=== PATIENT | male | born 1955 | race Caucasian/White ===

== ENCOUNTER 2016-10-01 07:00 | Day surgery (SDC) | payer OTHER ==
[2016-10-01] MEDS ORDERED: LIDOCAINE 1% W/EPI 1:200,000 MPF 30ML SQ ONE (14:02)
[2016-10-01] MEDS ORDERED: BUPIVACAINE 0.5% W/EPI MPF 30 ML VIAL IVP ONE (14:02)
[2016-10-01] MEDS ORDERED: DEXAMETHASONE PRESERVATIVE FREE 10MG/ML VIAL IV ONE (14:02)
[2016-10-01] MEDS ORDERED: LIDOCAINE 2% MDV (20MG/ML) 20ML VIAL IV ONE (15:10)
[2016-10-01] MEDS ORDERED: *PACU ONLY* KETAMINE HCL 10 MG/ML (20ML) VIAL IV ONE (15:10)
[2016-10-01] MEDS ORDERED: PROPOFOL 10 MG/ML VIAL IV ONE (15:10)
[2016-10-01] MEDS ORDERED: FENTANYL PF 100MCG/2ML VIAL IV ONE (15:10)
[2016-10-01] MEDS ORDERED: MIDAZOLAM HCL 2MG/2ML VIAL IV ONE (15:10)
--- NOTE | 2016-10-08 17:04 | Operative Note - [facility] ---
DATE OF SURGERY: 10/01/16 PREOPERATIVE DIAGNOSIS: CERVICAL SPONDYLOSIS WITHOUT MYELOPATHY, ICD-10 CODE = M47.812. OPERATION: RADIOFREQUENCY RHIZOTOMY LEFT CERVICAL FACETS 3-4, 4-5, 5-6, AND 6-7. SURGEON: LUDMILA TRIPATHI D.O. ANESTHESIA: LOCAL SEDATION. ANESTHESIA PROVIDER: CINDY NICOLE CRNA INDICATION: This patient presents with pain, which is left-sided neck and shoulder. Diagnostics confirm multiple levels of spondylosis. Due to the failure of therapy, a facet series resulted in 75-90% pain control. He is here for rhizotomy for more long-term relief. PROCEDURE: Intravenous line, vital sign monitoring by Anesthesia, patient position prone. Sterile prep, sterile technique. Facets on the left at 3-4, 4-5 , 5-6, and 6-7 marked and infiltrated. A 22-gauge rhizotomy cannula positioned. Stimulation trials conducted. Rhizotomy burn performed. Local with anti- inflammatory into the sites. Topical antibiotics. Sterile dressing applied. We will monitor and evaluate. cc: Dr. Goldman JOB NUMBER: [id number] MTDD
== END 2016-10-01 09:00 | disposition home or self-care (01) ==
LOC: SUR 07:00
PROVIDERS: ATTEND Pain Medicine Interventional Pain Medicine
DX: M47.892 Other spondylosis, cervical region (principal); E78.00 Pure hypercholesterolemia, unspecified; E11.9 Type 2 diabetes mellitus without complications; Z79.84 Long term (current) use of oral hypoglycemic drugs; I10 Essential (primary) hypertension
CPT/HCPCS: 64633; 64634 ×3; 01936; J1100; J3010

== ENCOUNTER 2017-03-18 08:51 | Day surgery (SDC) | payer BC, MEDICARE ==
[2017-03-18] MEDS ORDERED: LIDOCAINE 1% W/EPI 1:200,000 MPF 30ML SQ ONE (08:52)
[2017-03-18] MEDS ORDERED: BUPIVACAINE 0.75% W/EPI MPF 30ML VIAL IVP ONE (08:52)
[2017-03-18] MEDS ORDERED: PROPOFOL 10 MG/ML VIAL IV ONE (08:52)
[2017-03-18] MEDS ORDERED: MIDAZOLAM HCL 2MG/2ML VIAL IV ONE (08:52)
[2017-03-18] MEDS ORDERED: FENTANYL PF 100MCG/2ML VIAL IV ONE (08:52)
[2017-03-18] MEDS ORDERED: LIDOCAINE 2% MDV (20MG/ML) 20ML VIAL IV ONE (08:52)
[2017-03-18] MEDS ORDERED: DEXAMETHASONE PRESERVATIVE FREE 10MG/ML VIAL IV ONE (08:52)
[2017-03-18] MEDS ORDERED: HYDROCODONE/APAP 7.5/325MG TABLET PO ONE (08:52)
--- NOTE | 2017-03-18 16:07 | Operative Note - [facility] ---
DATE OF SURGERY: 03/18/17 PREOPERATIVE DIAGNOSIS: CERVICAL SPONDYLOSIS WITHOUT MYELOPATHY , ICD-10 CODE = M47.812. OPERATION: RADIOFREQUENCY RHIZOTOMY BILATERAL CERVICAL FACETS 4-5, 5-6, AND 6-7. SURGEON: LUDMILA TRIPATHI D.O. ANESTHESIA: LOCAL SEDATION. ANESTHESIA PROVIDER: LIGIA ROSAS CRNA INDICATION: This patient presents with neck pain. Examination shows tenderness in the cervical spine. Range of motion does cause pain to the neck with extension. Diagnostic studies show diffuse multiple levels of spondylosis. A facet series 75-plus percent pain control. Due to the failure of all therapies and the success of the facet series, the patient is here for rhizotomy for more long-term relief. PROCEDURE: Intravenous line, vital sign monitoring, IV sedation, prepped, draped, sterile technique. Under imaging, cervical facet levels at 4-5, 5-6, and 6-7 were identified and marked bilaterally. Skin infiltrated. A 22-gauge rhizotomy cannula positioned. Stimulation trials conducted. Rhizotomy burn performed. Local with anti-inflammatory into the sites. Topical antibiotics. Sterile dressing applied. We will monitor and evaluate. cc: Dr. Yuli Tripathi JOB NUMBER: [id number] MTDD
== END 2017-03-18 11:00 | disposition home or self-care (01) ==
LOC: SUR 08:51
PROVIDERS: ATTEND Pain Medicine Interventional Pain Medicine
DX: M47.812 Spondylosis without myelopathy or radiculopathy, cervical region (principal); E78.00 Pure hypercholesterolemia, unspecified; E11.9 Type 2 diabetes mellitus without complications; Z79.84 Long term (current) use of oral hypoglycemic drugs
CPT/HCPCS: J3490

== ENCOUNTER 2017-12-09 06:21 | Day surgery (SDC) | payer MEDICARE, BC ==
[2017-12-09] MEDS ORDERED: LIDOCAINE 2% MDV (20MG/ML) 20ML VIAL IV ONE (06:22)
[2017-12-09] MEDS ORDERED: MIDAZOLAM HCL 2MG/2ML VIAL IV ONE (06:22)
[2017-12-09] MEDS ORDERED: PROPOFOL 10 MG/ML VIAL IV ONE (06:22)
[2017-12-09] MEDS ORDERED: FENTANYL PF 100MCG/2ML VIAL IV ONE (06:22)
[2017-12-09] MEDS ORDERED: BUPIVACAINE 0.5% W/EPI MPF 30 ML VIAL IVP ONE (06:22)
[2017-12-09] MEDS ORDERED: LIDOCAINE 1% W/EPI 1:200,000 MPF 30ML SQ ONE (06:22)
[2017-12-09] MEDS ORDERED: DEXAMETHASONE PRESERVATIVE FREE 10MG/ML VIAL IV ONE (06:22)
--- NOTE | 2017-12-10 15:11 | Operative Note - [facility] ---
DATE OF SURGERY: 12/09/17 PREOPERATIVE DIAGNOSIS: CERVICAL SPONDYLOSIS WITHOUT MYELOPATHY, ICD-10 CODE = M47.812. OPERATION: RADIOFREQUENCY RHIZOTOMY BILATERAL CERVICAL FACETS 4-5, 5-6, AND 6-7. SURGEON: LUDMILA TRIPATHI D.O. ANESTHESIA: LOCAL SEDATION. ANESTHESIA PROVIDER: LIGIA ROSAS CRNA INDICATION: This patient presents with primary neck pain. Examination shows tenderness in the cervical spine. Range of motion does cause pain to the neck with extension. Diagnostic studies show diffuse multiple endplate spurring and spondylosis. A facet series 75 to 85% pain control. Due to the failure of all therapies and success of the facet series, the patient presents for rhizotomy for more long-term relief. PROCEDURE: Intravenous line, IV sedation, prepped and draped in sterile technique. Under imaging, facets 4-5, 5-6, and 6-7 bilateral. Each one of these points on the skin infiltrated. A 20-gauge rhizotomy cannula positioned. Stimulation trials conducted. Rhizotomy burn performed. Local with anti- inflammatory into the sites. Topical antibiotics. Sterile dressing was applied. We will monitor and evaluate. cc: Dr. Marianna Pearl JOB NUMBER: [id number] MTDD
== END 2017-12-09 08:45 | disposition home or self-care (01) ==
LOC: SUR 06:21
PROVIDERS: ATTEND Pain Medicine Interventional Pain Medicine
DX: M47.812 Spondylosis without myelopathy or radiculopathy, cervical region (principal); I10 Essential (primary) hypertension; E78.00 Pure hypercholesterolemia, unspecified; E11.9 Type 2 diabetes mellitus without complications; J44.9 Chronic obstructive pulmonary disease, unspecified; G47.33 Obstructive sleep apnea (adult) (pediatric)
CPT/HCPCS: 36416; 82948

== ENCOUNTER 2018-07-07 07:02 | Day surgery (SDC) | payer MEDICARE, BC ==
[2018-07-07] MEDS ORDERED: DEXAMETHASONE PRESERVATIVE FREE 10MG/ML VIAL IV ONE (07:03)
[2018-07-07] MEDS ORDERED: FENTANYL PF 100MCG/2ML VIAL IV ONE (07:03)
[2018-07-07] MEDS ORDERED: BUPIVACAINE 0.5% W/EPI MPF 30 ML VIAL IVP ONE (07:03)
[2018-07-07] MEDS ORDERED: MIDAZOLAM HCL 2MG/2ML VIAL IV ONE (07:03)
[2018-07-07] MEDS ORDERED: LIDOCAINE 2% MDV (20MG/ML) 20ML VIAL IV ONE (07:03)
[2018-07-07] MEDS ORDERED: PROPOFOL 10 MG/ML VIAL IV ONE (07:03)
[2018-07-07] MEDS ORDERED: LIDOCAINE 1% W/EPI 1:200,000 MPF 30ML SQ ONE (07:03)
--- NOTE | 2018-07-08 06:41 | Operative Note - [facility] ---
DATE OF SURGERY: 07/07/2018. PRIMARY CARE PHYSICIAN: Dr. Marianna Pearl. PREOPERATIVE DIAGNOSIS: CERVICAL SPONDYLOSIS WITHOUT MYELOPATHY, ICD-10 CODE M47.812. POSTOPERATIVE DIAGNOSIS: CERVICAL SPONDYLOSIS WITHOUT MYELOPATHY, ICD-10 CODE M47.812. PROCEDURE: Radiofrequency rhizotomy was performed of the bilateral cervical facets at 4-5, 5-6, and 6-7. ANESTHESIA: Local sedation. ANESTHESIA PROVIDER: Ishan Curry CRNA. INDICATIONS: This patient presents with primary neck pain. Examination shows tenderness in the cervical spine. Range of motion does cause pain to the neck with extension. Diagnostic studies show diffuse, multilevel endplate spurring and osteophytic formation. DESCRIPTION OF PROCEDURE: Intravenous lines, vital sign monitoring, and intravenous sedation. Prepped and draped with sterile technique. Under imaging the cervical facets in the area of pain were identified and marked at 4- 5, 5-6, and 6-7. Each one of these points on the skin was infiltrated. A 20- gauge rhizotomy cannula was positioned. Stimulation trial was conducted, and rhizotomy burn was performed at 80 degrees for 90 seconds. The procedure was atraumatic with no side effects and no complications. Local with anti- inflammatory into the sites. Topical antibiotic and sterile dressing applied. Will monitor and evaluate. cc: Dr. Marianna Pearl. Job Number: [id number] MTDD
== END 2018-07-07 10:00 | disposition home or self-care (01) ==
LOC: SUR 07:02
PROVIDERS: ATTEND Pain Medicine Interventional Pain Medicine
DX: M47.812 Spondylosis without myelopathy or radiculopathy, cervical region (principal); I10 Essential (primary) hypertension; E78.00 Pure hypercholesterolemia, unspecified; E11.9 Type 2 diabetes mellitus without complications; J44.9 Chronic obstructive pulmonary disease, unspecified; G47.33 Obstructive sleep apnea (adult) (pediatric); E03.9 Hypothyroidism, unspecified
CPT/HCPCS: 64633; 64634 ×2; 01936; J1100; J3010